=== PATIENT | male | born 1940 | race Caucasian/White ===

== ENCOUNTER 2017-03-12 12:49 | Emergency (ER) | payer OTHER ==
[~2017-03-12] VITALS: Ht 170.2 cm; Wt 70.9 kg
[~2017-03-12 12:49] MED LIST: AMLODIPINE BESYL5 MG PO; AVODART0.5 MG PO; CRESTOR20 MG PO; HYTRIN5 MG PO; K-DUR PO; K-DUR20 MEQ PO; METOPROLOL SUCC50 MG PO; NASONEX17 GM BOTH NARES; Neutra-Phos,Phos-Nak PO; OMEPRAZOLE40 M1 PO; POTASSIUM CITR10 MEQ PO
[2017-03-12 16:37] VITALS: BP 112/54
== END 2017-03-12 16:41 | disposition home or self-care (01) ==
LOC: EME 12:49
DX: S00.93XA Contusion of unspecified part of head, initial encounter (principal); S16.1XXA Strain of muscle, fascia and tendon at neck level, initial encounter; I10 Essential (primary) hypertension; I48.0 Paroxysmal atrial fibrillation; V49.49XA Driver injured in collision with other motor vehicles in traffic accident, initial encounter; Y92.481 Parking lot as the place of occurrence of the external cause; Z88.5 Allergy status to narcotic agent; Z88.8 Allergy status to other drugs, medicaments and biological substances
CPT/HCPCS: 70450; 72125; 99281; 99282